=== PATIENT | male | born 1980 | race African-American/Black ===

== ENCOUNTER 2023-12-02 01:19 | Emergency (ER) | payer SELFPAY ==
[2023-12-02 02:02] LABS: BASOPHILS ABSOLUTE AUTO 0.02 K/uL (0.00-0.20); BASOPHILS PERCENT AUTO 0.5 % (0.0-1.0); EOSINOPHILS ABSOLUTE AUTO 0.14 K/uL (0.00-0.45); EOSINOPHILS PERCENT AUTO 3.5 % (0.0-6.0); HEMATOCRIT 41.5 % (42.0-52.0); HEMOGLOBIN 13.3 g/dL (14.0-18.0); IMMATURE GRAN ABSOLUTE AUTO 0.01 K/uL (0.00-0.05); IMMATURE GRAN PERCENT AUTO 0.3 % (0.0-0.4); LYMPHOCYTES ABSOLUTE AUTO 1.93 K/uL (1.00-4.80); LYMPHOCYTES PERCENT AUTO 48.4 % (24.0-44.0); MEAN CORPUSCULAR HEMOGLOBIN 28.5 pg (28.0-32.0); MEAN CORPUSCULAR VOLUME 89.1 fL (83.0-99.0); MEAN PLATELET VOLUME 9.7 fL (9.4-12.4); MONOCYTES ABSOLUTE AUTO 0.35 K/uL (0.00-0.80); MONOCYTES PERCENT AUTO 8.8 % (0.0-8.0); NEUTROPHILS ABSOLUTE AUTO 1.54 K/uL (1.80-7.70); NEUTROPHILS PERCENT AUTO 38.5 % (41.0-71.0); PLATELET COUNT,PLT 190 K/uL (150-400); RED BLOOD CELL COUNT 4.66 M/uL (4.52-5.90); WHITE BLOOD CELL COUNT,WBC 3.99 K/uL (3.9-11.3)
[2023-12-02 02:42] LABS: A/G RATIO 1.2 (0.9-1.6); ALBUMIN 3.8 g/dL (3.4-5.0); BILIRUBIN TOTAL 0.7 mg/dL (0.2-1.0); CALCIUM 10.1 mg/dL (8.5-10.1); CARBON DIOXIDE,CO2 31.4 mmol/L (21.0-32.0); CREATININE 0.9 mg/dL (0.8-1.3); EST CRCL DRUG DOSING (CG) 96.91 mL/min; POTASSIUM,K 4.4 mmol/L (3.5-5.1); PROTEIN TOTAL,TP 7.1 g/dL (6.4-8.2)
[2023-12-02] MEDS: Aspirin 325 MG Tab PO ONE (03:22)
== END 2023-12-02 04:02 | disposition home or self-care (01) ==
LOC: MW.ED 01:19
DX: R07.89 Other chest pain (principal); Z75.8 Other problems related to medical facilities and other health care
CPT/HCPCS: 36415; 71046; 80053; 83880; 84484; 85025; 93005; 99285; A9270; 93010

== ENCOUNTER 2024-01-15 08:01 | Day surgery (SDC) | payer BC ==
[2024-01-15] MEDS ORDERED: propofoL 50 ML ONE (08:47)
[2024-01-15] MEDS ORDERED: Lidocaine 2% 5 ML SDV ONE (08:47)
[2024-01-15] MEDS: Lactated Ringers 1,000 ML IV SCH (08:58)
[2024-01-15] MEDS ORDERED: Glycopyrrolate 0.2 MG/ML SDV ONE (09:29)
[2024-01-15] MEDS ORDERED: Lactated Ringers 1,000 ML IV SCH (10:00)
== END 2024-01-15 10:15 | disposition home or self-care (01) ==
LOC: MW.SDS 08:01
PROVIDERS: ATTEND Surgery
DX: Z12.11 Encounter for screening for malignant neoplasm of colon (principal); Z98.84 Bariatric surgery status; Z87.891 Personal history of nicotine dependence
CPT/HCPCS: 45378; J2704; J7120; J1596; J3490